=== PATIENT | male | born 1930 | race Caucasian/White ===

== ENCOUNTER 2021-11-05 23:43 | Inpatient (IN) | payer MEDICARE, MEDICAID ==
[2021-11-06] MEDS ORDERED: cefTRIAXone\\ROCEPHIN 1 GM VIAL ONE (00:51)
[2021-11-06] MEDS ORDERED: cefTRIAXone\\ROCEPHIN 2 GM VIAL ONE (00:52)
[2021-11-06 00:53] LABS: #Eosinphils 0.1 thou/uL (0.0-0.7); #Lymphocytes 3.4 thou/uL (1.20-3.40); #Monocytes 0.8 thou/uL (0.11-0.59); #Neutrophils 6.5 thou/uL (1.40-6.50); %Basophils 0.3 % (0.0-1.0); %Eosinophils 1.1 % (0.0-10.0); %Lymphocytes 31.2 % (21.0-51.0); %Monocytes 7.3 % (0.0-10.0); %Neutrophils 60.1 % (42.0-75.0); Hemoglobin 9.6 g/dL (14.0-18.0); Mean Corpuscular HGB CONC 31.6 g/dL (32.0-36.0); Mean Corpuscular Hemoglobin 29.9 pg (27.0-31.0); Mean Corpuscular Volume 94.9 fL (78.0-98.0); Mean Platelet Volume 7.8 fL (7.4-10.4); Platelet Count 169 thou/uL (130-400); RBC Distribution Width 12.2 % (11.5-14.5); Red Blood Cell (RBC) Count 3.21 mill/uL (4.70-6.10); White Blood Cell (WBC) Count 10.9 thou/uL (4.8-10.8)
[2021-11-06 01:13] LABS: ALT (SGPT) 8 U/L (8-55); AST (SGOT) 11 U/L (5-34); Albumin 3.5 g/dL (3.4-4.8); Alkaline Phosphatase 53 U/L (40-110); Anion Gap 16 mmol/L (10-20); BUN (Urea Nitrogen) 77 mg/dL (8.4-25.7); Bilirubin, Total 0.2 mg/dL (0.2-1.2); Calc. Creatinine Clearance 0 mL/min (70-130); Calcium 9.4 mg/dL (7.8-10.44); Carbon Dioxide 10 mmol/L (23-31); Chloride 122 mmol/L (98-107); Globulin 2.7 g/dL (2.4-3.5); Glucose 130 mg/dL (83-110); Protein, Total 6.2 g/dL (5.8-8.1); Sodium 140 mmol/L (136-145)
[2021-11-06 01:16] LABS: Bacteria/HPF None Seen HPF (None Seen); Bilirubin Negative (Negative); Blood, Urine 3+ (Negative); Clarity Extra Turbid (Clear); Glucose, Urine (Dipstick) 30 mg/dL (Negative); Ketone, Urine Negative (Negative); Leukocyte 500 Leu/uL (Negative); Nitrite Negative (Negative); Protein, Urine (Dipstick) 100 mg/dL (Neg-Trace); RBC/HPF Greater than 50 HPF (0-3); Specific Gravity, Urine 1.015 (1.002-1.036); WBC/HPF Greater than 50 HPF (0-3); pH, Urine 5.5 (5.0-9.0)
[2021-11-06 01:18] LABS: Potassium 7.6 mmol/L (3.5-5.1)
[2021-11-06 01:26] LABS: Lipase 1326 U/L (8-78)
[2021-11-06] MEDS ORDERED: Calcium Chloride 1 GM/10 ML Abboject SYRINGE ONE ×2 (01:41→01:42)
[2021-11-06] MEDS ORDERED: Insulin Regular 300 UNITS/3 ML VIAL ONE (01:41)
[2021-11-06] MEDS ORDERED: Dextrose 50% Abboject 50 ML SYRINGE ONE (01:41)
[2021-11-06] MEDS ORDERED: Albuterol Sulfate 2.5 mg/0.5 ml Neb ONE (02:11)
[2021-11-06] MEDS ORDERED: Sodium Bicarbonate 2.5 MEQ/5 ML VIAL ONE ×3 (03:29→03:31)
[2021-11-06] MEDS ORDERED: Sodium Bicarb 50 MEQ/50 ML Abboject 8.4% SYRINGE ONE ×4 (03:30→03:35)
[2021-11-06 04:12] LABS: Analyzer IN Cardio ER; Base Excess -13.9 mEq/L (-2.0 to +3.0); Calcium, Ionized (venous) 1.37 mmol/L (1.16-1.32); Chloride (VBG) 118 mmol/L (98-106); Hemoglobin (Hb) 9.1 g/dL (12.6-17.4); Potassium (VBG) 5.76 mmol/L (3.70-5.30); Sodium 144.6 mmol/L (133-146)
[2021-11-06 04:14] LABS: Actual Bicarbonate (HCO3v) 13 mEq/L (22-28); pH (venous) 7.21 (7.32-7.43)
[2021-11-06] MEDS ORDERED: Ondansetron PF 4 MG/2 ML Vial IVP PRN ×2 (04:36→04:45)
[2021-11-06] MEDS ORDERED: Acetaminophen 325 MG TAB PO PRN (04:45)
[2021-11-06] MEDS ORDERED: Dextrose 5%-Lactated Ringers 1,000 ML IV SCH (04:45)
[2021-11-06] MEDS ORDERED: LOKELMA 10 GM PACKET PO SCH (04:45)
[2021-11-06] MEDS ORDERED: Ondansetron ODT 4 MG TAB SL PRN (04:45)
[2021-11-06] MEDS ORDERED: Lactated Ringer's 1,000 ML IV SCH (05:00)
[2021-11-06 05:12] LABS: ALT (SGPT) Less than 7 U/L (8-55); AST (SGOT) 17 U/L (5-34); Albumin 3.1 g/dL (3.4-4.8); Alkaline Phosphatase 48 U/L (40-110); Anion Gap 17 mmol/L (10-20); BUN (Urea Nitrogen) 73 mg/dL (8.4-25.7); Bilirubin, Total 0.3 mg/dL (0.2-1.2); Calc. Creatinine Clearance 0 mL/min (70-130); Calcium 10.1 mg/dL (7.8-10.44); Carbon Dioxide 12 mmol/L (23-31); Chloride 123 mmol/L (98-107); Globulin 2.5 g/dL (2.4-3.5); Glucose 69 mg/dL (83-110); Potassium 5.9 mmol/L (3.5-5.1); Protein, Total 5.6 g/dL (5.8-8.1); Sodium 146 mmol/L (136-145)
[2021-11-06] MEDS ORDERED: Furosemide 20 MG/2 ML VIAL SLOW IVP SCH (05:15)
[2021-11-06 06:04] LABS: Uric Acid 8.3 mg/dL (3.5-7.2)
[2021-11-06 06:05] LABS: INR-International Normal Ratio 1.1; PTT 24.2 sec (22.9-36.1); Prothrombin Time 14.3 sec (12.0-14.7)
[2021-11-06 06:28] LABS: CRP (Inflammatory) 1.13 mg/dL (= or < 0.5); Cardiac Risk 2.7 (Less than 4.5)
[2021-11-06 07:59] LABS: Phosphorus 3.7 mg/dL (2.3-4.7)
[2021-11-06 08:03] VITALS: BMI 30.9
[2021-11-06] MEDS ORDERED: FLU VACC QS2021-22(65YR UP)/PF 240 MCG/0.7 ML SYRINGE IM ONE (08:15)
[2021-11-06 09:06] LABS: Anion Gap 17 mmol/L (10-20); BUN (Urea Nitrogen) 71 mg/dL (8.4-25.7); Calc. Creatinine Clearance 9 mL/min (70-130); Calcium 9.7 mg/dL (7.8-10.44); Carbon Dioxide 13 mmol/L (23-31); Chloride 120 mmol/L (98-107); Glucose 174 mg/dL (83-110); Sodium 144 mmol/L (136-145)
[2021-11-06] MEDS: Heparin 5,000 UNITS/ML VIAL SC SCH ×3 (09:56→21:32)
[2021-11-06] MEDS: Polyethylene Glycol 3350 17 GM Packet PER TUBE SCH (10:09)
[2021-11-06] MEDS: Sodium Bicarbonate 150 MEQ in Dextrose 5% in Water 1,000 ML IV SCH ×2 (10:09→12:30)
[2021-11-06 10:44] LABS: Anion Gap 14 mmol/L (10-20); BUN (Urea Nitrogen) 70 mg/dL (8.4-25.7); Calc. Creatinine Clearance 9 mL/min (70-130); Calcium 9.4 mg/dL (7.8-10.44); Carbon Dioxide 17 mmol/L (23-31); Chloride 119 mmol/L (98-107); Glucose 228 mg/dL (83-110); Potassium 5.7 mmol/L (3.5-5.1); Sodium 144 mmol/L (136-145)
[2021-11-06] MEDS ORDERED: Sodium Bicarbonate 150 MEQ in Dextrose 5% in Water 1,000 ML IV SCH (13:15)
[2021-11-06 13:35] LABS: Anion Gap 14 mmol/L (10-20); BUN (Urea Nitrogen) 66 mg/dL (8.4-25.7); Calc. Creatinine Clearance 10 mL/min (70-130); Calcium 9.5 mg/dL (7.8-10.44); Carbon Dioxide 19 mmol/L (23-31); Chloride 117 mmol/L (98-107); Glucose 226 mg/dL (83-110); Potassium 5.4 mmol/L (3.5-5.1); Sodium 145 mmol/L (136-145)
[2021-11-06 17:35] LABS: Anion Gap 14 mmol/L (10-20); BUN (Urea Nitrogen) 62 mg/dL (8.4-25.7); Calc. Creatinine Clearance 10 mL/min (70-130); Calcium 9.2 mg/dL (7.8-10.44); Carbon Dioxide 21 mmol/L (23-31); Chloride 116 mmol/L (98-107); Glucose 236 mg/dL (83-110); Potassium 5.2 mmol/L (3.5-5.1); Sodium 146 mmol/L (136-145)
[2021-11-06] MEDS ORDERED: Dextrose 50% Abboject 50 ML SYRINGE SLOW IVP PRN (19:13)
[2021-11-06] MEDS ORDERED: HumaLOG 300 UNITS/3 ML VIAL SC PRN ×2 (19:13)
[2021-11-06] MEDS ORDERED: Dextrose 5% in Water 1,000 ML IV PRN (19:14)
[2021-11-06] MEDS: Sodium Chloride 0.45% 1,000 ML IV SCH (19:43)
[2021-11-06 21:25] LABS: Anion Gap 14 mmol/L (10-20); BUN (Urea Nitrogen) 61 mg/dL (8.4-25.7); Calc. Creatinine Clearance 11 mL/min (70-130); Calcium 9.3 mg/dL (7.8-10.44); Carbon Dioxide 23 mmol/L (23-31); Chloride 114 mmol/L (98-107); Glucose 186 mg/dL (83-110); Potassium 4.7 mmol/L (3.5-5.1); Sodium 146 mmol/L (136-145)
[2021-11-06 23:38] LABS: SARS-CoV-2 PCR by NAA Not Detected (NotDetected)
[2021-11-06] MEDS: cefTRIAXone\\ROCEPHIN 1 GM in Sodium Chloride 0.9% 100 ML IVPB SCH (23:44)
[2021-11-07] MEDS: Sodium Chloride 0.45% 1,000 ML IV SCH ×3 (05:21→22:21)
[2021-11-07] MEDS: Polyethylene Glycol 3350 17 GM Packet PER TUBE SCH (09:57)
[2021-11-07] MEDS: Heparin 5,000 UNITS/ML VIAL SC SCH ×3 (09:57→20:28)
[2021-11-07 10:05] LABS: Anion Gap 12 mmol/L (10-20); BUN (Urea Nitrogen) 53 mg/dL (8.4-25.7); Calc. Creatinine Clearance 11 mL/min (70-130); Calcium 8.8 mg/dL (7.8-10.44); Carbon Dioxide 23 mmol/L (23-31); Chloride 116 mmol/L (98-107); Glucose 114 mg/dL (83-110); Potassium 4.2 mmol/L (3.5-5.1); Sodium 147 mmol/L (136-145)
[2021-11-07 12:57] LABS: Anion Gap 10 mmol/L (10-20); BUN (Urea Nitrogen) 52 mg/dL (8.4-25.7); Calc. Creatinine Clearance 12 mL/min (70-130); Calcium 8.7 mg/dL (7.8-10.44); Carbon Dioxide 25 mmol/L (23-31); Chloride 115 mmol/L (98-107); Glucose 126 mg/dL (83-110); Potassium 4.2 mmol/L (3.5-5.1); Sodium 146 mmol/L (136-145)
[2021-11-07 18:42] LABS: Anion Gap 12 mmol/L (10-20); BUN (Urea Nitrogen) 50 mg/dL (8.4-25.7); Calc. Creatinine Clearance 13 mL/min (70-130); Calcium 8.4 mg/dL (7.8-10.44); Carbon Dioxide 21 mmol/L (23-31); Chloride 112 mmol/L (98-107); Glucose 171 mg/dL (83-110); Potassium 4.3 mmol/L (3.5-5.1); Sodium 141 mmol/L (136-145)
[2021-11-07] MEDS: Atorvastatin Calcium 20 MG TAB PO SCH (20:27)
[2021-11-07] MEDS ORDERED: Ziprasidone 20 MG VIAL IM SCH (21:00)
[2021-11-08] MEDS: cefTRIAXone\\ROCEPHIN 1 GM in Sodium Chloride 0.9% 100 ML IVPB SCH (01:54)
[2021-11-08 04:04] LABS: Anion Gap 14 mmol/L (10-20); BUN (Urea Nitrogen) 46 mg/dL (8.4-25.7); Calc. Creatinine Clearance 15 mL/min (70-130); Calcium 8.3 mg/dL (7.8-10.44); Carbon Dioxide 18 mmol/L (23-31); Chloride 113 mmol/L (98-107); Glucose 106 mg/dL (83-110); Potassium 4.2 mmol/L (3.5-5.1); Sodium 141 mmol/L (136-145)
[2021-11-08] MEDS: Donepezil HCl 10 MG TAB PO SCH (10:15)
[2021-11-08] MEDS: Polyethylene Glycol 3350 17 GM Packet PER TUBE SCH (10:15)
[2021-11-08] MEDS: Bicalutamide 50 MG TAB PO SCH (10:15)
[2021-11-08] MEDS: Heparin 5,000 UNITS/ML VIAL SC SCH ×3 (10:15→20:33)
[2021-11-08] MEDS: Sodium Chloride 0.45% 1,000 ML IV SCH (11:01)
[2021-11-08] MEDS: Melatonin 3 MG TAB PO SCH (17:28)
[2021-11-08] MEDS: Atorvastatin Calcium 20 MG TAB PO SCH (20:34)
[2021-11-09] MEDS ORDERED: Haloperidol 5 MG TAB PO SCH (01:30)
[2021-11-09] MEDS: cefTRIAXone\\ROCEPHIN 1 GM in Sodium Chloride 0.9% 100 ML IVPB SCH (01:34)
[2021-11-09] MEDS ORDERED: Haloperidol Lactate 5 MG/ML VIAL IM SCH (03:00)
[2021-11-09 06:22] LABS: Anion Gap 15 mmol/L (10-20); BUN (Urea Nitrogen) 39 mg/dL (8.4-25.7); Calc. Creatinine Clearance 20 mL/min (70-130); Calcium 8.1 mg/dL (7.8-10.44); Carbon Dioxide 20 mmol/L (23-31); Chloride 111 mmol/L (98-107); Glucose 115 mg/dL (83-110); Potassium 3.6 mmol/L (3.5-5.1); Sodium 142 mmol/L (136-145)
[2021-11-09] MEDS: Donepezil HCl 10 MG TAB PO SCH (09:16)
[2021-11-09] MEDS: Polyethylene Glycol 3350 17 GM Packet PER TUBE SCH (09:17)
[2021-11-09] MEDS: Bicalutamide 50 MG TAB PO SCH (09:18)
[2021-11-09] MEDS: Heparin 5,000 UNITS/ML VIAL SC SCH ×3 (09:19→20:26)
[2021-11-09] MEDS: Lactated Ringer's 1,000 ML IV SCH (14:00)
[2021-11-09] MEDS ORDERED: Fosfomycin 3 GM/Packet PO SCH ×2 (14:06→16:45)
[2021-11-09] MEDS: Sodium Chloride 0.45% 1,000 ML IV SCH (14:24)
[2021-11-09] MEDS: Melatonin 3 MG TAB PO SCH (18:39)
[2021-11-09] MEDS: Atorvastatin Calcium 20 MG TAB PO SCH (20:29)
[2021-11-10] MEDS: Lactated Ringer's 1,000 ML IV SCH (05:09)
[2021-11-10] MEDS: Polyethylene Glycol 3350 17 GM Packet PER TUBE SCH ×2 (08:51→09:01)
[2021-11-10] MEDS: Bicalutamide 50 MG TAB PO SCH ×2 (08:51→09:00)
[2021-11-10] MEDS: Donepezil HCl 10 MG TAB PO SCH ×2 (08:51→09:01)
[2021-11-10] MEDS: Heparin 5,000 UNITS/ML VIAL SC SCH ×2 (08:55→17:16)
[2021-11-10 11:37] LABS: Anion Gap 15 mmol/L (10-20); BUN (Urea Nitrogen) 32 mg/dL (8.4-25.7); Calc. Creatinine Clearance 23 mL/min (70-130); Calcium 8.1 mg/dL (7.8-10.44); Carbon Dioxide 19 mmol/L (23-31); Chloride 114 mmol/L (98-107); Glucose 90 mg/dL (83-110); Potassium 3.5 mmol/L (3.5-5.1); Sodium 144 mmol/L (136-145)
[2021-11-10 16:25] VITALS: BP 137/57; TEMP 97.3
== END 2021-11-10 17:40 | disposition hospice, home (50) | DRG 682 ==
LOC: ERS 23:43 → IMCU/EMU 11-06 03:42 → NEURO 11-08 22:24
PROVIDERS: ADMIT Student in an Organized Health Care Education/Training Program; ATTEND Student in an Organized Health Care Education/Training Program
DX: N17.9 Acute kidney failure, unspecified (principal); Z66 Do not resuscitate; Z20.822 Contact with and (suspected) exposure to COVID-19; Z51.5 Encounter for palliative care; K85.90 Acute pancreatitis without necrosis or infection, unspecified; G93.41 Metabolic encephalopathy; N39.0 Urinary tract infection, site not specified; E87.2 Acidosis; E87.0 Hyperosmolality and hypernatremia; F03.91 Unspecified dementia, unspecified severity, with behavioral disturbance; Z16.24 Resistance to multiple antibiotics; E87.5 Hyperkalemia; E78.5 Hyperlipidemia, unspecified; K21.9 Gastro-esophageal reflux disease without esophagitis; E11.22 Type 2 diabetes mellitus with diabetic chronic kidney disease; I12.9 Hypertensive chronic kidney disease with stage 1 through stage 4 chronic kidney disease, or unspecified chronic kidney disease; Z96.659 Presence of unspecified artificial knee joint; E87.8 Other disorders of electrolyte and fluid balance, not elsewhere classified; N18.30 Chronic kidney disease, stage 3 unspecified; E86.0 Dehydration; C61 Malignant neoplasm of prostate; B96.89 Other specified bacterial agents as the cause of diseases classified elsewhere; Z78.1 Physical restraint status; Z28.21 Immunization not carried out because of patient refusal; Z79.899 Other long term (current) drug therapy; Z79.84 Long term (current) use of oral hypoglycemic drugs; Z90.49 Acquired absence of other specified parts of digestive tract; Z98.890 Other specified postprocedural states; Z85.038 Personal history of other malignant neoplasm of large intestine; Z87.440 Personal history of urinary (tract) infections
CPT/HCPCS: 36415; 36416; 51702; 74176; 76705; 80048; 80053; 80061; 81003; 81015; 82550; 82805; 83605; 83615; 83690; 84100; 84145; 84540; 84550; 85025; 85610; 85652; 85730; 86140; 87040; 87077; 87086; 87186; 93005; 96365; 96366; 96375; J0696; J1630; J1644; J1815; J3486; J3490; J7070; J7120; J7611; U0003; U0005